=== PATIENT | male | born 1980 | race Asian ===

== ENCOUNTER 2019-06-28 19:10 | Emergency (ER) | payer MEDICAID, OTHER ==
[~2019-06-28] VITALS: Ht 170.2 cm; Wt 72.1 kg
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
[2019-06-28] MEDS ORDERED: TDAP [DIPH/PERTUSSIS/TET] 0.5 ML VIAL IM ONE ×2 (19:24→19:30)
[2019-06-28] MEDS ORDERED: MORPHINE SULFATE INJ 4 MG/ML DISP.SYRIN ONE (19:26)
[2019-06-28] MEDS ORDERED: CLINDAMYCIN 900 MG/6 ML VIAL ONE (19:26)
[2019-06-28] MEDS ORDERED: CLINDAMYCIN 900 MG/6 ML VIAL IM ONE (19:30)
[2019-06-28] MEDS ORDERED: MORPHINE SULFATE INJ 4 MG/ML DISP.SYRIN IM ONE (19:30)
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
--- NOTE | 2019-06-28 19:53 | NUR ---
ANGIE OROURKE IS AT THE BEDSIDE.
--- NOTE | 2019-06-28 19:58 | NUR ---
ANGIE DUKES [id number] TOOK REPORT FROM THE PT.
[2019-06-28 20:00] VITALS: BP 124/85
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
--- NOTE | 2019-06-28 20:30 | NUR ---
Crutches dispensed. Pt instructed on proper use of crutches. Patient able to demonstrate correct use of crutches.
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
--- NOTE | 2019-06-28 21:34 | NUR ---
OFFICER ANGIE LOPEZ ARRIVED AND INQUIRED ABOUT THE PT.
== END 2019-06-28 21:01 | disposition home or self-care (01) ==
LOC: ER 19:12
DX: S81.802A Unspecified open wound, left lower leg, initial encounter (principal); W34.09XA Accidental discharge from other specified firearms, initial encounter; Y93.89 Activity, other specified; Y92.89 Other specified places as the place of occurrence of the external cause; Y99.8 Other external cause status
CPT/HCPCS: 29515; 73590; 90471; 90715; 96372 ×2; 99284; A6403; J2270; J3490

== ENCOUNTER 2019-07-16 02:07 | Emergency (ER) | payer MEDICAID ==
[~2019-07-16] VITALS: Ht 170.2 cm; Wt 71.2 kg
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
--- NOTE | 2019-07-16 02:11 | NUR ---
DR ROGERS IS AT THE BEDSIDE SPEAKING TO THE PT AND EVALUATING THE LEG. PT WAS TOLD THAT HE WOULD BE ADMITTED TO THE HOSPITAL. PT REQUESTED TO LEAVE TO COLLECT HIS BELONGINGS AND RETURN. PT WAS TOLD THAT HE WOULD HAVE TO SIGN OUT AMA. PT'S WOUNDS WERE RECOVERED AND PT REC'D A NEW SOCK.
--- NOTE | 2019-07-16 02:39 | NUR ---
Patient does not wish to proceed with medical care recommended by Dr. ROGERS. Patient given information related to possible complications, up to and including , which could occur as a result of leaving the hospital at this time. Patient verbalizes understanding of risks involved due to leaving against medical advice. Patient has signed AMA form. PT IS AFRAID TO LEAVE HIS BELONGINGS ON THE STREET AND IS UNABLE TO CONTACT ANYONE TO WATCH IT FOR HIM. PT WANTS TO LEAVE AND COME BACK AND RE-REGISTER. PT WAS GOING TO BE ADMITTED FOR CELLULITIS.
[2019-07-16 02:50] VITALS: BP 129/86
== END 2019-07-16 02:39 | disposition left against medical advice (07) ==
LOC: ER 02:07
DX: L03.116 Cellulitis of left lower limb (principal); Z59.0 Homelessness

== ENCOUNTER 2019-07-16 21:00 | Emergency (ER) | payer MEDICAID ==
[~2019-07-16] VITALS: Ht 170.2 cm; Wt 71.7 kg
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
[2019-07-16 21:57] LABS: BASOPHILS # (AUTO) 0.1 /CMM (0.0-0.2); BASOPHILS % (AUTO) 1.3 % (0.0-2.0); EOSINOPHILS % (AUTO) 2.3 % (0.0-6.0); HEMATOCRIT 38 % (39-51); HEMOGLOBIN 12.6 g/dL (13.5-17.5); LYMPHOCYTES % (AUTO) 32.7 % (20.0-44.0); MEAN CORPUSCULAR HGB CONC 33 g/dl (31.0-36.0); MEAN CORPUSCULAR VOLUME 94 fL (80-96); MONOCYTES # (AUTO) 0.5 /CMM (0.1-1.30); MONOCYTES % (AUTO) 7.6 % (2.0-12.0); NEUTROPHILS # (AUTO) 3.5 /CMM (1.8-8.9); NEUTROPHILS % (AUTO) 56.1 % (43.0-81.0); PLATELET COUNT (AUTO) 328 /CMM (150-450); RED BLOOD CELL COUNT(AUTO) 4.07 MIL/uL (4.5-6.0); WHITE BLOOD COUNT (AUTO) 6.2 K/uL (4.3-11.0)
[2019-07-16 22:03] LABS: CALCIUM, SERUM 8.5 mg/dL (8.5-10.1); POTASSIUM 4.4 mmol/L (3.5-5.1)
[2019-07-16] MEDS ORDERED: CT SWABBABLE VALVE TRANS SET 1 EA INFUS.SET MC ONE (22:05)
[2019-07-16] MEDS ORDERED: IOHEXOL-350 100 ML VIAL IV ONE (22:05)
[2019-07-16] MEDS ORDERED: IV NS 0.9% 250 ML IV ONE (22:05)
[2019-07-16] MEDS ORDERED: IBUPROFEN 600 MG TABLET PO ONE ×2 (22:30→22:52)
--- NOTE | 2019-07-16 23:59 | NUR ---
DR. SHELBY ON THE PHONE WITH DR. OTERO (VASCULAR SURGEON MULT[employer] PRODUCTION ASSISTANT)
--- NOTE | 2019-07-17 00:35 | NUR ---
IV removed. Catheter intact and site benign. Pressure and 4x4 applied to site. No bleeding noted.
[2019-07-17 00:40] VITALS: BP 122/76
--- NOTE | 2019-07-17 00:40 | NUR ---
Patient discharged to home in stable condition. Written and verbal after care instructions given. Patient verbalizes understanding of instruction. Pt ambulated using crutches. VSS. No acute distress noted.
== END 2019-07-17 00:41 | disposition home or self-care (01) ==
LOC: ER 21:04
DX: S82.492A Other fracture of shaft of left fibula, initial encounter for closed fracture (principal); Z59.0 Homelessness; X58.XXXA Exposure to other specified factors, initial encounter; Y93.89 Activity, other specified; Y92.89 Other specified places as the place of occurrence of the external cause; Y99.8 Other external cause status
CPT/HCPCS: 29515; 36415; 75635; 80048; 85025; 99285; J7050; Q9967